=== PATIENT | female | born 2000 | race Hispanic/Latino ===

== ENCOUNTER 2023-03-18 00:20 | Emergency (ER) | payer OTHER ==
[2023-03-18] MEDS ORDERED: Aspirin 325 MG TAB ONE (00:59)
[2023-03-18 01:25] LABS: BHCG - Serum Negative (NEGATIVE); Pregs Control Bar Appear? YES (CONTROL BAR)
[2023-03-18 01:26] LABS: Pregs Control Background? CLEAR/WHITE (CLR/WHITE)
[2023-03-18 01:33] LABS: ALT (SGPT) 27 U/L (8-55); AST (SGOT) 24 U/L (5-34); Alkaline Phosphatase 66 U/L (40-110); Anion Gap 15 mmol/L (10-20); BUN (Urea Nitrogen) 11 mg/dL (7.0-18.7); Bilirubin, Total 0.3 mg/dL (0.2-1.2); Calc. Creatinine Clearance 0 mL/min (70-130); Calcium 8.9 mg/dL (7.8-10.44); Carbon Dioxide 22 mmol/L (22-29); Chloride 106 mmol/L (98-107); Estimated GFR 104; Globulin 3.4 g/dL (2.4-3.5); Glucose 87 mg/dL (70-105); Lipase 26 U/L (8-78); Potassium 3.6 mmol/L (3.5-5.1); Protein, Total 7.4 g/dL (6.0-8.3); Sodium 139 mmol/L (136-145)
[2023-03-18 02:02] LABS: #Monocytes 0.4 10x3/uL (0.0-1.1); #Neutrophils 3.2 10x3/uL (1.5-8.4); %Basophils 0.6 % (0.0-2.0); %Eosinophils 0.5 % (0.0-6.0); %Lymphocytes 42.1 % (18.0-47.0); %Monocytes 6.1 % (0.0-10.0); %Neutrophils 50.4 % (40.0-75.0); Hemoglobin 10.8 g/dL (12.0-15.5); Mean Corpuscular HGB CONC 30.9 g/dL (32.0-36.0); Mean Corpuscular Hemoglobin 22.3 pg (27.0-33.0); Mean Corpuscular Volume 72.3 fl (81.6-98.3); Platelet Count 334 10x3/uL (150-450); RBC Distribution Width 15.5 % (11.5-14.5); Red Blood Cell (RBC) Count 4.84 10x6/uL (3.90-5.03); White Blood Cell (WBC) Count 6.3 10x3/uL (3.5-10.5)
== END 2023-03-18 02:21 | disposition home or self-care (01) ==
LOC: CSHERS 00:20
DX: R07.89 Other chest pain (principal); Z87.891 Personal history of nicotine dependence
CPT/HCPCS: 71045; 80053; 83690; 84484; 84703; 85025; 85379; 93005